=== PATIENT | male | born 1980 ===

== ENCOUNTER 2023-06-25 08:40 | Day surgery (SDC) | payer OTHER ==
[2023-06-21 10:23] LABS: PH,URINE 6.5 (5.0-8.0); URINE APPEARANCE Clear; URINE BILIRRUBIN Negative (NEGATIVE); URINE BLOOD Negative; URINE COLOR Yellow; URINE GLUCOSE Negative (NEGATIVE); URINE LEUKOCYTE Negative; URINE NITRATE Negative; URINE PROTEIN Negative (NEGATIVE)
[2023-06-21 10:23] LABS: HEMATOCRIT 47.1 % (39.0-48.0); HEMOGLOBIN 16.5 g/dL (13-16.00); MEAN CELL VOLUME 89.3 fL (80.0-100.00); MEAN CORPUSCULAR HEMOGLOBIN 31.2 pg (27.00-32.0); PLATELET COUNT 160 K/uL (150-450); RED BLOOD COUNT 5.27 M/uL (4.00-6.00); RED CELL DISTRIBUTION WIDTH 13.2 % (11.5-14.5)
[2023-06-21 10:25] LABS: URINE RBC 3.3 uL (0.0-20.8); URINE WBC 6.4 uL (0.0-23.2)
[2023-06-21 10:47] LABS: ALBUMIN 4.1 gm/dL (3.4-5.0); CALCIUM 9.9 mg/dL (8.5-10.1); CREATININE SERUM 0.89 mg/dL (0.70-1.30); GFR 93.29; PHOSPHOROUS 3.9 mg/dL (2.5-4.9); POTASSIUM 4.75 mEq/L (3.5-5.1)
[2023-06-21 11:14] LABS: INR 0.97; PROTHROMBIN TIME 10.2 SECONDS (9.0-11.5)
[2023-06-21 11:28] LABS: URINE EPITHELIAL CELLS 0.4 uL (0.0-38.8)
[~2023-06-25] VITALS: Ht 157.5 cm; Wt 89.4 kg
[~2023-06-25 08:40] MED LIST: CRESTOR10 MG PO; TOPROL XL50 M1 PO
[2023-06-25] MEDS ORDERED: CEFAZOLIN SODIUM 1,000 MG VIAL ONE (11:09)
[2023-06-25] MEDS ORDERED: LIDOCAINE HCL 1%/Epi 20ML VIAL IJ ONE (12:20)
[2023-06-25] MEDS ORDERED: POVIDONE-IODINE 118 ML BOTT TOP ONE (12:20)
[2023-06-25] MEDS ORDERED: DEXAMETHASONE SODIUM PHOSPHATE 4 MG/ML VIAL ONE (12:45)
[2023-06-25] MEDS ORDERED: EPINEPHRINE HCL/PF 1 MG/ML AMPUL ONE (13:09)
[2023-06-25] MEDS ORDERED: LIDOCAINE HCL 1% 200MG/20ML VIAL IJ ONE (13:30)
[2023-06-25] MEDS ORDERED: EPINEPHRINE HCL/PF 1 MG/ML AMPUL IR ONE (13:30)
[2023-06-25] MEDS ORDERED: CIPROFLOXACIN HCL 0.175 MG/DR DROPS OP ONE (13:30)
[2023-06-25] MEDS ORDERED: CEFAZOLIN SODIUM 1,000 MG VIAL IV ONE (13:30)
[2023-06-25] MEDS ORDERED: CEPHALEXIN500 M1 PO (16:07)
[2023-06-25] MEDS ORDERED: CIPROFLOXACIN2.5 ML OTIC (16:08)
[2023-06-25] MEDS ORDERED: LEVALBUTEROL HCL 0.63 MG/3 ML SOLUTION IH ONE (16:52)
[2023-06-25] MEDS ORDERED: RACEPINEPHRINE HCL 0.5 ML AMPUL IH ONE (16:52)
== END 2023-06-25 20:30 | disposition home or self-care (01) ==
LOC: CIR.AMB 08:40
PROVIDERS: ATTEND Otolaryngology Otology & Neurotology
DX: H71.92 Unspecified cholesteatoma, left ear (principal); H72.12 Attic perforation of tympanic membrane, left ear; Z88.6 Allergy status to analgesic agent; Z91.013 Allergy to seafood